=== PATIENT | female | born 1970 | race Caucasian/White ===

== ENCOUNTER 2017-03-03 20:06 | Emergency (ER) | payer SELFPAY | END 2017-03-03 22:10 | disposition home or self-care (01) | LOC: D.ER 20:06 | DX: L25.9 Unspecified contact dermatitis, unspecified cause (principal) ==

== ENCOUNTER 2017-05-11 18:09 | Emergency (ER) | payer SELFPAY | END 2017-05-11 22:26 | disposition home or self-care (01) | LOC: D.ER 18:09 | DX: S53.401A Unspecified sprain of right elbow, initial encounter (principal); X58.XXXA Exposure to other specified factors, initial encounter; Y93.89 Activity, other specified; Y92.89 Other specified places as the place of occurrence of the external cause ==

== ENCOUNTER 2017-05-13 05:17 | Emergency (ER) | payer SELFPAY ==
[2017-05-13 06:04] LABS: BASOPHILS 0.2 % (0-2); EOSINOPHILS 5.9 % (0-7); HEMATOCRIT 43.9 % (36.0-48.0); HEMOGLOBIN 15.1 g/dL (12-16); LYMPHOCYTES 48.1 % (15-50); MCHC 34.4 g/dL (31.0-37.0); MCV 87.3 fL (80.0-100.0); MEAN PLATELET VOLUME 9.7 fL (7.4-10.4); MONOCYTES 7.8 % (2-11); PLATELET COUNT 189 10x3/uL (130-400); RBC 5.03 10x6/uL (4.00-5.40); RDW 12.6 % (11.5-14.5); WBC 4.7 10x3/uL (4.8-10.8)
[2017-05-13 06:23] LABS: ALBUMIN 4.1 g/dL (3.4-5.0); ALKALINE PHOSPHATASE 94 U/L (46-116); ALT (SGPT) 50 U/L (10-68); BILIRUBIN - TOTAL 0.65 mg/dL (0.2-1.3); CALC OSMOLALITY 280 mosm/kg (275-300); CALCIUM 9.2 mg/dL (8.5-10.1); CHLORIDE - SERUM 103 mmol/L (98-107); CREATININE - SERUM 0.8 mg/dL (0.6-1.3); GLUCOSE 92 mg/dL (74-106); POTASSIUM - SERUM 3.3 mmol/L (3.5-5.1); PROTEIN - SERUM 7.5 g/dL (6.4-8.2); SODIUM 140 mmol/L (136-145); UREA NITROGEN 17 mg/dL (7-18); eGFR NON AFRICAN AMERICAN 81 mL/min (90-120)
[2017-05-13 06:27] LABS: TROPONIN-I < 0.017 ng/mL (0.000-0.060)
== END 2017-05-13 06:35 | disposition home or self-care (01) ==
LOC: D.ER 05:17
PROVIDERS: Family Medicine
DX: K21.9 Gastro-esophageal reflux disease without esophagitis (principal)